=== PATIENT | male | born 1990 | race African-American/Black ===

== ENCOUNTER 2021-08-05 12:59 | Emergency (ER) | payer SELFPAY | END 2021-08-05 14:14 | disposition home or self-care (01) | LOC: ERS 12:59 | DX: H10.022 Other mucopurulent conjunctivitis, left eye (principal); J45.909 Unspecified asthma, uncomplicated; F17.210 Nicotine dependence, cigarettes, uncomplicated | CPT/HCPCS: 99283 ==

== ENCOUNTER 2021-08-08 16:48 | Emergency (ER) | payer OTHER, SELFPAY ==
[2021-08-08] MEDS ORDERED: Proparacaine 0.5% Opth 15 ML BOT ONE (17:30)
[2021-08-08] MEDS ORDERED: Fluorescein Opthalmic Strip ONE (17:30)
== END 2021-08-08 18:26 | disposition home or self-care (01) ==
LOC: ERS 16:48
DX: H10.9 Unspecified conjunctivitis (principal); J45.909 Unspecified asthma, uncomplicated; F17.210 Nicotine dependence, cigarettes, uncomplicated
CPT/HCPCS: 99283

== ENCOUNTER 2022-03-19 15:05 | Emergency (ER) | payer OTHER ==
[2022-03-19] MEDS ORDERED: Dexameth. Sod Phosp. 10 MG/ML (CHEMO USE ONLY) ONE (16:55)
[2022-03-19 17:00] LABS: SARS-CoV-2 NAA Rapid Test Not Detected (NotDetected)
[2022-03-19] MEDS ORDERED: Ipratropium/Albuterol 3 ML NEB ONE (17:02)
== END 2022-03-19 17:26 | disposition home or self-care (01) ==
LOC: ERS 15:05
DX: J20.9 Acute bronchitis, unspecified (principal); Z20.822 Contact with and (suspected) exposure to COVID-19; F17.210 Nicotine dependence, cigarettes, uncomplicated
CPT/HCPCS: 71045; 96372; J1100; J7620

== ENCOUNTER 2022-08-13 17:55 | Emergency (ER) | payer OTHER ==
[2022-08-13] MEDS ORDERED: Bupivacaine 0.25% 10 ML VIAL ONE (18:52)
== END 2022-08-13 18:30 | disposition home or self-care (01) ==
LOC: ERS 17:55
DX: K64.4 Residual hemorrhoidal skin tags (principal); F17.210 Nicotine dependence, cigarettes, uncomplicated
CPT/HCPCS: 99283; S0020

== ENCOUNTER 2023-11-15 05:55 | Emergency (ER) | payer OTHER ==
[2023-11-15] MEDS ORDERED: Ipratropium/Albuterol 3 ML NEB ONE (06:31)
[2023-11-15] MEDS ORDERED: predniSONE 20 MG TAB ONE (06:31)
[2023-11-15] MEDS ORDERED: Albuterol 2.5 MG (0.5 mL) NEB ONE (06:31)
[2023-11-15 07:22] LABS: Influenza A by NAA Not Detected (NotDetected); Influenza B by NAA Not Detected (NotDetected); SARS-CoV-2 NAA Rapid Test Not Detected (NotDetected)
== END 2023-11-15 07:07 | disposition home or self-care (01) ==
LOC: ERS 05:55
DX: R05.9 Cough, unspecified (principal); R06.2 Wheezing; F17.210 Nicotine dependence, cigarettes, uncomplicated
CPT/HCPCS: J7512; J7611; J7620

== ENCOUNTER 2024-01-12 03:48 | Emergency (ER) | payer OTHER ==
[2024-01-12] MEDS ORDERED: Ipratropium/Albuterol 3 ML NEB ONE (04:03)
[2024-01-12] MEDS ORDERED: methylPREDNISolone Sod Succ/PF 125 MG/2 ML VIAL ONE (04:09)
[2024-01-12] MEDS ORDERED: Magnesium 2 GM/50 ML BAG (IN WATER) ONE (04:09)
[2024-01-12 04:45] LABS: Hematocrit 45.7 % (42.0-52.0); Mean Corpuscular Hemoglobin 30.4 pg (27.0-31.0); Mean Corpuscular Volume 86.7 fL (78.0-98.0); Mean Platelet Volume 9.3 fL (7.4-10.4); Platelet Count 266 10x3/uL (130-400); RBC Distribution Width 12.9 % (11.5-14.5); Red Blood Cell (RBC) Count 5.27 mill/uL (4.70-6.10)
[2024-01-12 04:55] LABS: ALT (SGPT) 28 U/L (8-55); AST (SGOT) 20 U/L (5-34); Albumin 4.1 g/dL (3.5-5.0); Alkaline Phosphatase 63 U/L (40-110); Anion Gap 17 mmol/L (10-20); BUN (Urea Nitrogen) 11 mg/dL (8.9-20.6); Bilirubin, Total 0.3 mg/dL (0.2-1.2); Calc. Creatinine Clearance 0 mL/min (70-130); Calcium 9.3 mg/dL (7.8-10.44); Carbon Dioxide 19 mmol/L (22-29); Chloride 103 mmol/L (98-107); Estimated GFR 97; Globulin 3.4 g/dL (2.4-3.5); Glucose 128 mg/dL (70-105); Potassium 3.7 mmol/L (3.5-5.1); Protein, Total 7.5 g/dL (6.0-8.3); Sodium 135 mmol/L (136-145)
[2024-01-12 04:59] LABS: Troponin I Less than 0.010 ng/mL (< 0.028)
[2024-01-12 06:48] LABS: Anisocytosis MODERATE=16-30 cells HPF (0-5); Eosinophils 6 % (0-10); Lymphocytes 50 % (21-51); Macrocytosis SLIGHT = 6-15 cells HPF (0-5); Monocytes 9 % (0-10); Neutrophil 28 % (42-75); Platelet Adequacy Comment Platelets Normal; Reactive Lymphocytes 6 % (0-10); Smudge Cells 14.9 %
== END 2024-01-12 05:24 | disposition home or self-care (01) ==
LOC: ERS 03:48
DX: J45.909 Unspecified asthma, uncomplicated (principal); F17.210 Nicotine dependence, cigarettes, uncomplicated; Z79.51 Long term (current) use of inhaled steroids
CPT/HCPCS: 71045; 80053; 84484; 85025; 93005; J2919; J3475; J7620

== ENCOUNTER 2024-03-09 14:42 | Emergency (ER) | payer OTHER ==
[2024-03-09] MEDS ORDERED: methylPREDNISolone Sod Succ/PF 125 MG/2 ML VIAL ONE (14:46)
[2024-03-09] MEDS ORDERED: diphenhydrAMINE 50 MG/ML VIAL ONE (14:46)
[2024-03-09] MEDS ORDERED: Ipratropium/Albuterol 3 ML NEB ONE ×2 (14:56→15:27)
[2024-03-09] MEDS ORDERED: Famotidine/PF 20 mg/2ml Vial ONE (14:56)
[2024-03-09] MEDS ORDERED: EPINEPHrine 1 MG/ML VIAL ONE (15:27)
[2024-03-09] MEDS ORDERED: Morphine 4 MG/ML VIAL ONE (17:15)
[2024-03-09 18:30] LABS: #Basophils Less than 0.03 10x3/uL (0.0-0.2); %Basophils 0.1 % (0.0-1.0); %Eosinophils 0.4 % (0.0-10.0); %Lymphocytes 8.9 % (21.0-51.0); %Monocytes 1.2 % (0.0-10.0); %Neutrophils 89.1 % (42.0-75.0); Hematocrit 45.1 % (42.0-52.0); Hemoglobin 15.5 g/dL (14.0-18.0); Mean Corpuscular HGB CONC 34.4 g/dL (32.0-36.0); Mean Corpuscular Hemoglobin 30.6 pg (27.0-31.0); Mean Corpuscular Volume 89.1 fL (78.0-98.0); Mean Platelet Volume 9.3 fL (7.4-10.4); Platelet Count 238 10x3/uL (130-400); RBC Distribution Width 13.4 % (11.5-14.5); Red Blood Cell (RBC) Count 5.06 mill/uL (4.70-6.10)
[2024-03-09 18:42] LABS: ALT (SGPT) 20 U/L (Less than 45); AST (SGOT) 27 U/L (11-34); Albumin 4.2 g/dL (3.1-4.5); Alkaline Phosphatase 62 U/L (40-110); Anion Gap 13 mmol/L (10-20); BUN (Urea Nitrogen) 14 mg/dL (8.9-20.6); Bilirubin, Total 0.2 mg/dL (0.3-1.2); Calc. Creatinine Clearance 0 mL/min (70-130); Calcium 9.1 mg/dL (7.8-10.44); Carbon Dioxide 24 mmol/L (22-29); Chloride 106 mmol/L (98-107); Estimated GFR 104; Globulin 3.3 g/dL (2.4-3.5); Glucose 127 mg/dL (70-105); Lipase 11 U/L (8-78); Magnesium 1.7 mg/dL (1.6-2.6); Protein, Total 7.5 g/dL (6.0-8.3); Sodium 139 mmol/L (136-145)
[2024-03-09 18:48] LABS: Troponin I 0.011 ng/mL (< 0.028)
== END 2024-03-09 19:10 | disposition home or self-care (01) ==
LOC: ERS 14:42
DX: T88.6XXA Anaphylactic reaction due to adverse effect of correct drug or medicament properly administered, initial encounter (principal); T39.315A Adverse effect of propionic acid derivatives, initial encounter; F17.210 Nicotine dependence, cigarettes, uncomplicated
CPT/HCPCS: 36415; 71045; 80053; 83690; 83735; 84484; 85025; 93005; 94640; 96372; 96374; 96375; J0171; J1200; J2270; J2919; J3490; J7620

== ENCOUNTER 2024-10-25 10:14 | Emergency (ER) | payer OTHER ==
[2024-10-25 11:50] LABS: #Basophils Less than 0.03 10x3/uL (0.0-0.2); #Eosinophils 0.21 10x3/uL (0.0-0.7); #Monocytes 0.70 10x3/uL (0.11-0.59); #Neutrophils 1.32 10x3/uL (1.40-6.50); %Basophils 0.5 % (0.0-1.0); %Eosinophils 4.8 % (0.0-10.0); %Lymphocytes 48.3 % (21.0-51.0); %Monocytes 16.1 % (0.0-10.0); %Neutrophils 30.3 % (42.0-75.0); Hematocrit 47.9 % (42.0-52.0); Hemoglobin 16.2 g/dL (14.0-18.0); Mean Corpuscular Hemoglobin 29.9 pg (27.0-31.0); Mean Corpuscular Volume 88.4 fL (78.0-98.0); Platelet Count 235 10x3/uL (130-400); Red Blood Cell (RBC) Count 5.42 mill/uL (4.70-6.10); White Blood Cell (WBC) Count 4.35 10x3/uL (4.8-10.8)
[2024-10-25 12:03] LABS: Bacteria/HPF None Seen HPF (None Seen); CAUTI Indications for Culture Acute Hematuria; Glucose, Urine (Dipstick) Normal (Negative); Leukocyte Negative Leu/uL (Negative); Protein, Urine (Dipstick) 10 mg/dL (Neg-Trace); RBC/HPF 0-3 HPF (0-3); Specific Gravity, Urine 1.028 (1.002-1.036); WBC/HPF 0-3 HPF (0-3)
[2024-10-25 12:04] LABS: Urine Culture Reflex No No
[2024-10-25 12:10] LABS: ALT (SGPT) 14 U/L (Less than 45); AST (SGOT) 28 U/L (11-34); Albumin 4.3 g/dL (3.1-4.5); Alkaline Phosphatase 64 U/L (40-110); Anion Gap 15 mmol/L (10-20); BUN (Urea Nitrogen) 10 mg/dL (8.9-20.6); Bilirubin, Total 0.4 mg/dL (0.3-1.2); Calc. Creatinine Clearance 0 mL/min (70-130); Calcium 9.2 mg/dL (7.8-10.44); Carbon Dioxide 26 mmol/L (22-29); Chloride 102 mmol/L (98-107); Globulin 2.8 g/dL (2.4-3.5); Glucose 86 mg/dL (70-105); Potassium 3.8 mmol/L (3.5-5.1); Sodium 139 mmol/L (136-145)
[2024-10-25] MEDS ORDERED: Ondansetron PF 4 MG/2 ML Vial ONE (12:25)
[2024-10-25] MEDS ORDERED: Famotidine/PF 20 mg/2ml Vial ONE (12:29)
[2024-10-25 12:50] LABS: CK (CPK) 230 U/L (30-200); Magnesium 1.9 mg/dL (1.6-2.6)
[2024-10-25] MEDS ORDERED: Iopamidol-370 76% 500 ML MDV (1 ML CHARGE) ONE (13:07)
== END 2024-10-25 14:10 | disposition home or self-care (01) ==
LOC: ERS 10:14
DX: I88.0 Nonspecific mesenteric lymphadenitis (principal); J45.909 Unspecified asthma, uncomplicated; Z79.51 Long term (current) use of inhaled steroids
CPT/HCPCS: 74177; 80053; 81001; 82550; 83690; 83735; 85025; 87428; 96361; 96374; 96375; J2270; J2405